=== PATIENT | female | born 1985 | race Caucasian/White ===

== ENCOUNTER 2017-12-27 15:00 | Outpatient (CLI) | payer MEDICAID, SELFPAY ==
[2017-12-27 15:26] VITALS: BMI 24.3
[2017-12-27 16:32] LABS: Hemoglobin 11.9 g/dl (12.0-15.0); Mean Corpuscular Hgb 32.1 pg (27.0-32.0); Mean Corpuscular Volume 94.3 fL (81-99); Platelet Count 271 K/mm3 (150-450); RBC Distribution Width CV 13.1 % (11.6-14.6); Red Blood Count 3.71 M/mm3 (4.2-5.4); White Blood Count 7.7 K/mm3 (4.4-11.0)
[2017-12-27 16:41] LABS: Scan Indicated on CBC? Y/N NO
[2017-12-27 17:10] LABS: Prothrombin Time (Protime)PT. 12.9 SECONDS (11.7-14.9)
[2017-12-27 17:11] LABS: Fibrinogen 297 mg/dl (203-444); Partial Thromboplast Time 30.9 Seconds (24.1-36.2)
--- NOTE | 2017-12-27 19:05 | OB.TRI.NOTE ---
History of Present Illness Date of Service: 12/27/17 Was patient seen by the physician?: No Reason For Visit: MONITOR-FALL Date of Service: 12/27/17 Final AMINAH: 04/08/18 Final AMINAH Source: US <20 weeks Gestational age: 25 Weeks and 3 Days History of Present Illness: pt s/p fall down steps, no abdominal trauma- was seen in office and sent over for monitoring. no VB, LOF, ctx. Home Medications Medication Instructions Recorded Calcium Carbonate [Calcium] 600 mg PO 08/15/16 Docosahexanoic Acid [ Dha] 08/15/16 Ferrous Sulfate 325 mg PO 08/15/16 Allergies No Known Allergies Allergy (Verified 12/27/17 16:07) NST - FHR Rate Baby A Baseline: 145 Variability:: Moderate Accelerations:: 15 x 15 Decelerations:: None NST Reactive:: Yes, Appropriate for gestational age FHR Category:: Category I Uterine Activity:: no contractions Impression/Plan 32yo @ 25.3 wks s/p fall sent for monitoring. 1) well being established 2) labs reviewed 3) dc home
== END 2017-12-27 18:50 | disposition home or self-care (01) ==
LOC: WPOUT 15:08 → WP 15:10
PROVIDERS: Visit Provider Obstetrics & Gynecology
DX: O99.89 Other specified diseases and conditions complicating pregnancy, childbirth and the puerperium (principal); W10.9XXA Fall (on) (from) unspecified stairs and steps, initial encounter; Y93.9 Activity, unspecified; Y92.9 Unspecified place or not applicable; Z3A.25 25 weeks gestation of pregnancy
CPT/HCPCS: 36415; 59025; 59050; 85027; 85384; 85610; 85730; 86850; 86900; 99218; G0378

== ENCOUNTER 2018-03-30 14:05 | Inpatient (IN) | payer BC, SELFPAY ==
[2018-03-30] MEDS: Lactated Ringers 1,000 ML 50 ML IV (14:15)
--- NOTE | 2018-03-30 14:16 | PCM.HP.OB ---
History Date of Admission: 03/30/18 Final AMINAH: 04/08/18 Final AMINAH Source: US <20 weeks Gestational age: 38 Weeks and 5 Days History of this : This is a 32 year-old, G [], P [], at weeks gestational age. Allergies No Known Allergies Allergy (Verified 12/27/17 16:07) Home Medications: Home Medications Calcium Carbonate [Calcium] 600 mg PO 08/15/16 Docosahexanoic Acid [ Dha] 08/15/16 Ferrous Sulfate 325 mg PO 08/15/16 Smoking Status: Never smoker Alcohol: None Number of Fetus(es): 1 Heart Tracin mod sebastien TOCO Analysis: q2 min History Past Pregnancies: Past Pregnancies Delivery Date Name GA/Weeks Outcome Route Weight Infant Gender Labor Length Anesthesia Delivery Location Provider FOB Expected Delivery Method: Spontaneous Vaginal Review of Systems Constitutional: Denies: Anorexia HEENT: Denies: Difficulty Hearing Cardiovascular: Denies: Chest Pain Gastrointestinal: Reports: Abdominal Pain - from contraction pain Physical Exam General: Alert, Oriented x3 Abdomen: Gravid Extremities:: No clubbing Neurological: Cranial nerves II-XII grossly intact Estimated gestational size: Appropriate for gestational size Presentation: Cephalic Cervix Dilation (cm): 7 Station: -1 Effacement (%): 80 Assessment/Plan This is a 32 year-old, G 2p1 @ 38.5 wks in active labor 1) admit to L&D 2) monitor fhr/toco 3) anticipate 4) epidural or Nitrous for pain mgmt 5) GBS negative
[2018-03-30 14:29] LABS: Hematocrit 39.2 % (37-47); Hemoglobin 13.3 g/dl (12.0-15.0); Mean Corp Hgb Conc 33.9 g/gl (32-36); Mean Corpuscular Hgb 31.7 pg (27.0-32.0); Mean Corpuscular Volume 93.3 fL (81-99); Mean Platelet Vol. 9.6 fl (6.2-12.0); Platelet Count 238 K/mm3 (150-450); RBC Distribution Width SD 44.1 fl (35.1-43.9); White Blood Count 9.6 K/mm3 (4.4-11.0)
[2018-03-30 14:39] LABS: Scan Indicated on CBC? Y/N NO
[2018-03-30] MEDS: Oxytocin 10 UNITS/ML Vial IM (15:05)
--- NOTE | 2018-03-30 15:07 | PCM.OB.VAG ---
Vaginal Delivery Maternal Presentation: Active Labor Amniotic Membrane Rupture Type: Artificial Amniotic Fluid Description: Moderate meconium Final AMINAH: 04/08/18 Final AMINAH Source: US <20 weeks Gestational age: 38 Weeks and 5 Days Date of Procedure: 03/30/18 Pre-Operative Diagnosis: spontaneous labor at 38.5 wks gestation Post-Operative Diagnosis: same, live male Surgery/ Procedure Performed: Spontaneous Vaginal Delivery Type of Anesthesia: - - nitrous oxide Description of Procedure: of live male infant born without complication- peds and respiratory present for delivery due to meconium but baby vigorous at . Delayed cord clamping performed. Presentation: Vertex Placental Delivery Description: Spontaneous Placenta Disposition: [facility] Cord Vessel Description: 3 Vessels Nuchal Cord Compression: Without compression Cord Entanglement: None Estimated Blood Loss: 250 (1 minute): 9 (5 minute): 9 Episiotomy Description: None Laceration: None Medications given after delivery: IV Pitocin Complications: None
[2018-03-30 15:55] VITALS: BMI 25.2
[2018-03-30] MEDS: Ibuprofen 600 MG Tablet PO ×2 (16:13→22:33)
[2018-03-30 17:15] LABS: Bedside Glucose 112 mg/dL (70-110)
[2018-03-30 20:00] VITALS: BP 118/52; PULSE 90; RESP 18; TEMP 36.8
[2018-03-31 00:29] VITALS: BP 107/57; PULSE 73; RESP 16; TEMP 36.9
[2018-03-31 04:09] VITALS: BP 94/51; PULSE 75; RESP 16; TEMP 36.6
[2018-03-31] MEDS: Ibuprofen 600 MG Tablet PO ×2 (07:57→15:11)
[2018-03-31 08:30] VITALS: BP 90/53; PULSE 86; RESP 18; TEMP 36.2
--- NOTE | 2018-03-31 08:53 | DCINST_ITS ---
Discharge Diet: No Restrictions Discharge Activity: Return to Normal Activity, May not drive while taking narcotic pain medications., May Shower May resume sexual activity in: 4-6 weeks Additional Activity Instructions:: Nothing in the vagina for 4-6 weeks. You may return to work/school in 6 weeks. Call your doctor if your incision/area has: Continuous Slow Oozing, Sudden Increased Bleeding, Increased Pain/ Swelling, Increased Redness, Foul Smelling Discharge Call your doctor if you observe: Fever of 101 or Higher, Inability to urinate, Inability to have a bowel movement, Using more than one pad per hour, - - Having difficulty with /latch. You can schedule a visit with [facility] provider. Additional Instructions: If you experience any of the following, contact your healthcare provider. * Bleeding that soaks a pad every hour for 2 hours * Fever 100.4 or higher * Unrelieved incision or abdominal pain * Swelling, redness, discharge or bleeding from your incision or episiotomy site * Your incision begins to separate * Problems urinating (including inability to urinate or burning while urinating) . * Visual changes * Severe headache * Flu-like symptoms * Pain or redness in one of both of your breasts * Pain, warmth, tenderness or swelling in your legs, especially the calf area * Frequent nausea and vomiting * Symptoms of depression or anxiety If you experience any of the following, call 911 or go to the nearest Emergency Room. * Chest pain * Problems breathing * Seizure activity * Partial or complete paralysis of a body part, slurred speech, weakness or drooping of the face, or a sudden inability to walk or hold your balance Allergies/Adverse Reactions: Allergies No Known Allergies Allergy (Verified 12/27/17 16:07) Medications to take at Discharge Calcium Carbonate [Calcium] 600 mg PO 08/15/16 Docosahexanoic Acid [ Dha] 08/15/16 Ferrous Sulfate 325 mg PO 08/15/16 Senna/Docusate Sodium [Senokot-S] 1 - 2 tablet PO DAILY PRN PRN tablet Please Follow Up With: Consuelo Zurita MD When: Call to make an appointment with your doctor in 6 weeks. If you had elevated Blood Pressure or 4th degree laceration you will need to be seen in 2 weeks. Primary Care Physician: Care Physician,No Primary [Primary Care Provider] - Proposed Discharge Date: 03/31/18
--- NOTE | 2018-03-31 09:02 | PN.OBGYN_ITS ---
Subjective: Patient standing at bedside with , bonding with baby. Patient reports no issues overnight; denies RIVERA, scotoma and dizziness. Denies any issues with urination and ambulation. Patient desires discharge to home today. Objective: Nipples without cracks or blisters, no ecchymoses noted Abdomen NT x 4 quadrants, FF midline 3FB below umbilicus Scant rubra lochia noted +2/4 reflexes in LE, no edema noted, negative calf pain to palpation bilaterally - Physical Exam General: Alert, Oriented x3, Cooperative HEENT: Atraumatic, Normocephalic Neck: Supple Lungs: Normal air movement Cardiovascular: Regular rate, No murmurs Abdomen: Soft, Non Tender Extremities: No edema, Capillary Refill Less than 3 Seconds Skin: No rashes, No breakdown Musculoskeletal: No Tenderness to Palpation of Joints or Extremities Neurological: Cranial nerves II-XII grossly intact Psych/Mental Status: Normal Affect, Appropriate Vital Signs Temp Pulse Resp BP 97.8 F 75 16 94/51 L 03/31/18 04:09 03/31/18 04:09 03/31/18 04:09 03/31/18 04:09 Oxygen Delivery Method Room Air Weight: 160 lb 14.999 oz Body Mass Index (BMI) 25.2 Intake and Output for Last 24 Hours 03/29/18 03/30/18 03/31/18 23:59 23:59 23:59 Output Total 700 / 700 800 / 800 Balance -700 / -700 -800 / -800 Laboratory Tests Past 24 Hrs 03/30/18 03/30/18 14:15 14:15 WBC 9.6 RBC 4.20 Hgb 13.3 Hct 39.2 MCV 93.3 MCH 31.7 MCHC 33.9 RDW 13.0 RDW Differential 44.1 H Plt Count 238 MPV 9.6 Blood Type B POSITIVE Antibody Screen NEGATIVE POC Glucose 03/30/18 16:52 POC Glucose 112 H Medical Necessity - Tobacco Use Smoking Status: Never smoker Assessment/Plan 32 y/o now, s/p without complications, Normal Course P: 1) Discharge to home pending discharge 2) Anticipatory and teaching done 3) RTC in 6 weeks to [facility] for PP visit. Eden Ford APRN-REJI
[2018-03-31 12:00] VITALS: BP 112/66; PULSE 85; RESP 16; TEMP 36.6
[2018-03-31 15:38] VITALS: BP 100/59; PULSE 80; RESP 16; TEMP 36.6
== END 2018-03-31 17:00 | disposition home or self-care (01) | DRG 775 ==
PROVIDERS: Admitting Provider Obstetrics & Gynecology; Visit Provider Obstetrics & Gynecology
DX: O24.420 Gestational diabetes mellitus in childbirth, diet controlled (principal); O77.0 Labor and delivery complicated by meconium in amniotic fluid; Z3A.38 38 weeks gestation of pregnancy; Z37.0 Single live birth
CPT/HCPCS: 59025; 59050; 82962; 85027; 86850; 86900; 99218; J7120; G0378

== ENCOUNTER 2021-01-21 13:27 | Outpatient (RCR) | payer OTHER, SELFPAY | END 2021-03-24 23:59 | LOC: IMMUN 13:27 | PROVIDERS: Visit Provider Family Medicine | DX: Z23 Encounter for immunization (principal) | CPT/HCPCS: 0001A; 0002A; 91300 ==

== ENCOUNTER → 2024-03-05 | Outpatient (CLI) | payer BC, SELFPAY ==
[2024-03-08 08:14] LABS: HPV APTIMA, High Risk Negative (Negative)
== END | disposition home or self-care (01) ==
PROVIDERS: Visit Provider Nurse Practitioner Family
DX: Z12.4 Encounter for screening for malignant neoplasm of cervix (principal)
CPT/HCPCS: 87624; 88175; G0145

== ENCOUNTER → 2024-03-20 | Outpatient (CLI) | payer BC, SELFPAY ==
[2024-03-20 12:29] LABS: Absolute Lymphocyte Count 1.91 X10^3/uL (0.83-4.51); Basophil# 0.02 X10^3/uL; Basophil% 0.4 % (0-1); Eosinophils% 8.3 % (0-5); Hematocrit 41.3 % (37-47); Hemoglobin 13.4 g/dL (12.0-15.0); Lymphocyte # 1.91 X10^3/ul (0.83-4.51); Lymphocyte % 39.8 % (19-41); Mean Corp Hgb Conc 32.4 g/dL (32-36); Mean Corpuscular Volume 92.6 fL (81-99); Mean Platelet Vol. 9.2 fl (6.2-12.0); Monocyte# 0.51 X10^3/uL; Monocyte% 10.6 % (0-10); NRBC Flagged by Analyzer 0 % (0-5); Neutrophil # 1.96 X10^3/uL (2.7-7.7); Neutrophil % 40.9 % (47-70); Platelet Count 339 K/mm3 (150-450); RBC Distribution Width CV 12.3 % (11.6-14.6); Red Blood Count 4.46 M/mm3 (4.2-5.4); White Blood Count 4.8 K/mm3 (4.4-11.0)
[2024-03-20 12:44] LABS: Hemoglobin A1c 4.9 % (3.8-5.6)
[2024-03-20 13:09] LABS: ALB/GLOB Ratio 0.9 RATIO (0.9-2.4); AST(SGOT) 14 U/L (15-37); Alanine Aminotransfer ALT/SGPT 16 U/L (13-56); Albumin, Serum 3.5 g/dL (3.2-5.0); Alkaline Phosphatase 62 U/L (45-117); Anion Gap 8 (5-15); BUN 8 mg/dL (7-18); BUN/Creat Ratio 9.8 RATIO (10-20); Calcium,Total 8.7 mg/dL (8.5-10.1); Chloride 105 mmol/L (98-107); Cholesterol 162 mg/dL (200); Creatinine, Serum 0.81 mg/dL (0.55-1.02); EST Glomerular Filtration Rate 83 mL/min (>60); Est Glom Filt Rate - Afr Amer 101 mL/min (>60); Globulin 3.9 g/dL (2.2-4.2); Glucose 116 mg/dL (74-106); High Density Lipoprotein 63 mg/dL; Protein, Total 7.4 g/dL (6.4-8.2); Sodium Level 137 mmol/L (136-145); Triglycerides 92 mg/dL; Very Low Density Lipoprotein 18 mg/dL (5-40)
== END | disposition home or self-care (01) ==
LOC: BIMLAB 08:21
PROVIDERS: PCP Internal Medicine; Referring Provider Internal Medicine; Visit Provider Internal Medicine
DX: Z00.00 Encounter for general adult medical examination without abnormal findings (principal); Z86.32 Personal history of gestational diabetes
CPT/HCPCS: 36415; 80053; 80061; 83036; 85025

== ENCOUNTER → 2024-03-26 | Outpatient (CLI) | payer BC, SELFPAY ==
--- NOTE | 2024-03-26 10:11 | BI_ITS ---
MAMMOGRAPHY - BILATERAL SCREENING REASON FOR EXAM: Female, 38 years old. Routine annual screening examination. PERTINENT HISTORY: Non-contributory. TECHNIQUE: Digital bilateral breast sherie (3D mammographic acquisition) in the CC and MLO projections. 2-D mediolateral oblique (MLO) and craniocaudad (CC) views of both breasts were obtained. CAD: Full Field Digital Mammography with Computer Added Detection was performed. COMPARISON: None. Baseline examination. FINDINGS: Breast Composition: The breasts are extremely dense, which lowers the sensitivity of mammography. There are no dominant masses or suspicious calcifications. Benign appearing bilateral axillary lymph nodes. No other significant abnormalities are identified. BI/SCRN MAMM (CAD)W/SHERIE BILAT IMPRESSION: Negative screening mammogram. Yearly followup mammogram recommended. (A) ASSESSMENT CATEGORY: BIRADS Category 2: Benign. A letter regarding these results will be sent to the patient by the facility within 30 days. Approximately 10% of breast cancers are not detected by mammography. A normal mammogram should not delay biopsy of a clinically suspicious abnormality. [id number] Electronically Signed: Frnasisco Powers MD at 12:44 EDT ,
== END | disposition home or self-care (01) ==
LOC: OPBI 10:11
PROVIDERS: PCP Internal Medicine; Referring Provider Nurse Practitioner Family; Visit Provider Nurse Practitioner Family
DX: Z12.31 Encounter for screening mammogram for malignant neoplasm of breast (principal)
CPT/HCPCS: 77063; 77067